=== PATIENT | female | born 1955 | race Caucasian/White ===

== ENCOUNTER → 2016-05-14 | Outpatient (CLI) | payer MEDICAID ==
--- NOTE | 2016-05-14 10:02 | MA ---
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 Subsequent breast MR imagin g revealed an oval-shaped nodule with features which may represent a fibroadenoma in the 1 o'clock po sition of the right breast, which had been sonographically stable. The patient also presents for shor t-term mammographic reevaluation of some likely benign calcifications on the left side. Technique: Digital CC and MLO views of each breast as well as spot magnification compression, true me diolateral and craniocaudal views of the left breast are compared with prior sonography dated 2015 and October 23, 2015, diagnostic mammography of the left breast dated January 26, 2016, bi lateral breast MR dated October 13, 2015, left mammography dated June 09, 2015 and June 04, 2015, bilateral screening mammography dated May 23, 2015 as well as an outside mammogram from [facility] dated February 15, 2006. A cutaneous marker has been placed over a mole on the skin surface of the left breast. This examination was processed by the [employer] computer-aided detection system. A curvil inear marker has been placed over a periareolar scar on the left breast. Breast Density: Type B. Findings: There is a moderately dense heterogeneous residual fibroglandular pattern. There is stable architectural distortion at the lumpectomy site in the left breast. Calcifications only confidently i dentified above the nipple line on the true mediolateral spot magnification compression view continue to have a likely-benign appearance, and are located posterior and distant from the lumpectomy site. The mammographic appearance of the right breast is stable, however targeted sonography of the 1 to 2 o'clock position will be subsequently performed to reevaluate a smoothly-contoured oval-shaped hypoec hoic nodule. Impression: 1. Continued stability of postlumpectomy change in the left breast, and a tiny collection of likely-b enign calcifications seen only superiorly and posteriorly in the left breast. BI-RADS Category 2. Rec ommend routine annual mammographic screening. 2. Incomplete mammographic assessment of the right breast with targeted sonography of the superior me dial portion, to be subsequently performed. BI-RADS Category 0.
--- NOTE | 2016-05-14 10:18 | US ---
Right Breast Sonography Clinical History: 60-year-old female previously diagnosed in 2016 with LCIS of the left breast with a subsequent lumpectomy, and an MR exam revealed a nodule in the superior medial right breast which o n ultrasound had features suggestive of a fibroadenoma. The patient has elected to have this followed rather than biopsied. Technique: A linear 12 MHz transducer was used to sonographically evaluate the 1 o'clock position of the right breast, 7 cm from the nipple. Color Doppler was used. Comparison Studies: Right breast sonography, dated January 26, 2016 and October 23, 2015 and MR imagin g of the breast, dated October 13, 2015. Findings: Again noted is a stable well-circumscribed oval-shaped hypoechoic nodule measuring 4 x 7 x 8 mm with some minimal intrinsic vascular flow with color Doppler. The appearance of this is complete ly unchanged from previous studies in September and December. Since the patient has elected to have this followed rather than biopsied, continued six-month follow up for at least two years would be suggeste d to assure stability. Alternatively, should the patient decide, this would be easily amenable to ult rasound-guided core biopsy and histologic sampling. I discussed these findings and recommendations with the patient at the time of the procedure. Impression: Stable oval-shaped 8 mm nodule in the 1 o'clock position of the right breast, which may r epresent a benign fibroadenoma; however, because it is solid, it remains technically indeterminate. E ither ultrasound-guided core biopsy or continued six-month follow up for at least two years is sugges wendy to assure stability. The patient has a follow up appointment with Drs. Goldman and Rick.
--- NOTE | 2016-05-14 11:02 | DX ---
PA and Lateral Chest May 14, 2016 Indication: Follow up position of radiopaque needle in back. Comparison: PA chest August 26, 1987. Findings: The 22 mm in length radiopaque needle in the high right back projecting posterior to the ri ght 7th rib is unchanged in position. The lungs are well-aerated and clear and the heart size is normal. No pneumothorax, effusion or conso lidation. Impression: 1. Radiopaque foreign body, needle, high right back, is unchanged in position since 1987. 2. Clear lungs. No acute process.
== END ==
LOC: BRMIMAGING 08:46
PROVIDERS: ATTEND Internal Medicine Hematology & Oncology
DX: N63 Unspecified lump in breast (principal); D05.02 Lobular carcinoma in situ of left breast
CPT/HCPCS: 71020-PO; 76641-PO; G0204

== ENCOUNTER → 2016-10-22 | Outpatient (CLI) | payer MEDICAID | LOC: BRMIMAGING 10:10 | PROVIDERS: ATTEND Internal Medicine Hematology & Oncology | DX: Z12.39 Encounter for other screening for malignant neoplasm of breast (principal); N63 Unspecified lump in breast; Z85.3 Personal history of malignant neoplasm of breast; Z80.3 Family history of malignant neoplasm of breast | CPT/HCPCS: 76641-PO ==

== ENCOUNTER → 2016-12-24 | Outpatient (CLI) | payer MEDICAID ==
[~2016-12-24] MED LIST: GADOBUTROL 10 ML VIAL IVP ONE
== END ==
LOC: FIMAGING 10:04
PROVIDERS: ATTEND Internal Medicine Hematology & Oncology
CPT/HCPCS: 0159T; A9585; C8908

== ENCOUNTER → 2017-01-30 | Outpatient (CLI) | payer MEDICAID | LOC: FIMAGING 10:47 | PROVIDERS: ATTEND Family Medicine | DX: S83.282A Other tear of lateral meniscus, current injury, left knee, initial encounter (principal); M25.462 Effusion, left knee; M71.22 Synovial cyst of popliteal space [Baker], left knee; M79.645 Pain in left finger(s) ==

== ENCOUNTER → 2017-05-12 | Outpatient (CLI) | payer MEDICAID | LOC: BRMIMAGING 08:10 | PROVIDERS: ATTEND Internal Medicine Hematology & Oncology | DX: Z12.31 Encounter for screening mammogram for malignant neoplasm of breast (principal); R92.8 Other abnormal and inconclusive findings on diagnostic imaging of breast; Z85.3 Personal history of malignant neoplasm of breast; Z80.3 Family history of malignant neoplasm of breast | CPT/HCPCS: 76641-PO ==

== ENCOUNTER → 2018-05-05 | Outpatient (CLI) | payer MEDICAID | LOC: BRMIMAGING 09:57 | PROVIDERS: ATTEND Internal Medicine Hematology & Oncology | DX: Z12.31 Encounter for screening mammogram for malignant neoplasm of breast (principal); Z80.3 Family history of malignant neoplasm of breast ==

== ENCOUNTER → 2018-05-17 | Outpatient (CLI) | payer MEDICAID | LOC: BRMIMAGING 09:14 | PROVIDERS: ATTEND Internal Medicine Hematology & Oncology | DX: R92.8 Other abnormal and inconclusive findings on diagnostic imaging of breast (principal) ==

== ENCOUNTER → 2018-08-11 | Outpatient (CLI) | payer MEDICAID | LOC: EMCIMAGING 13:50 | PROVIDERS: ATTEND Family Medicine | DX: S83.521A Sprain of posterior cruciate ligament of right knee, initial encounter (principal); S83.511A Sprain of anterior cruciate ligament of right knee, initial encounter; S83.411A Sprain of medial collateral ligament of right knee, initial encounter; S83.241A Other tear of medial meniscus, current injury, right knee, initial encounter; S72.424A Nondisplaced fracture of lateral condyle of right femur, initial encounter for closed fracture; M66.0 Rupture of popliteal cyst; X58.XXXA Exposure to other specified factors, initial encounter | CPT/HCPCS: 73721-PN ==